=== PATIENT | female | born 1995 | race American Indian/Alaskan Native ===

== ENCOUNTER 2018-10-16 04:03 | Emergency (ER) | payer OTHER ==
[2018-10-16] MEDS ORDERED: TYLENOL PO ONE (04:56)
[2018-10-16] MEDS ORDERED: TYLENOL ONE (04:58)
[2018-10-16] MEDS ORDERED: DECADRON IM ONE (08:17)
--- NOTE | 2018-10-16 08:21 | Emergency Department Report ---
ED ENT HPI - General Chief complaint: Sore Throat Stated complaint: THROAT PAIN/EARACHE Time Seen by Provider: 10/16/18 07:52 Source: patient Mode of arrival: Ambulatory Limitations: No Limitations - History of Present Illness Initial comments: 23-year-old with no prior medical history complaining of sore throat for the past 2 weeks. Patient states that she's been trying [id number] medications are not helping. Patient said she social having referred right ear pain. Patient denies any trauma or recent injuries. Patient states that pain is worsened with swallowing foods and liquids. MD complaint: sore throat Onset/Timin -: Gradual Location: R ear, throat Severity: moderate Severity scale (0 -10): 7 Quality: aching Consistency: constant Improves with: none Worsens with: swallowing - Related Data Previous Rx's Medication Instructions Recorded Last Taken Type Amoxicillin [Amoxicillin TAB] 875 mg PO BID #14 tablet 10/16/18 Unknown Rx Ibuprofen [Motrin] 800 mg PO Q8HR #30 tablet 10/16/18 Unknown Rx Nystas/Diphen/Xyl Visc/Mylanta 15 ml MM Q6H PRN #120 ml 10/16/18 Unknown Rx [Magic Mouthwash] Allergies Allergy/AdvReac Type Severity Reaction Status Date / Time peanut Allergy Swelling Verified 10/16/18 04:46 ED Dental HPI - General Chief complaint: Sore Throat Stated complaint: THROAT PAIN/EARACHE Time Seen by Provider: 10/16/18 07:52 Source: patient Mode of arrival: Ambulatory Limitations: No Limitations - Related Data Previous Rx's Medication Instructions Recorded Last Taken Type Amoxicillin [Amoxicillin TAB] 875 mg PO BID #14 tablet 10/16/18 Unknown Rx Ibuprofen [Motrin] 800 mg PO Q8HR #30 tablet 10/16/18 Unknown Rx Nystas/Diphen/Xyl Visc/Mylanta 15 ml MM Q6H PRN #120 ml 10/16/18 Unknown Rx [Magic Mouthwash] Allergies Allergy/AdvReac Type Severity Reaction Status Date / Time peanut Allergy Swelling Verified 10/16/18 04:46 ED Review of Systems ROS: Stated complaint: THROAT PAIN/EARACHE Other details as noted in HPI Constitutional: denies: chills, fever Eyes: denies: eye pain, eye discharge, vision change ENT: ear pain, throat pain. denies: congestion Respiratory: denies: cough, shortness of breath, wheezing Cardiovascular: denies: chest pain, palpitations Endocrine: no symptoms reported Gastrointestinal: denies: abdominal pain, nausea, diarrhea Skin: denies: rash ED Past Medical Hx - Past Medical History Previous Medical History?: No - Surgical History Past Surgical History?: No - Social History Smoking Status: Never Smoker Substance Use Type: None - Medications Home Medications: Home Medications Medication Instructions Recorded Confirmed Last Taken Type Amoxicillin [Amoxicillin TAB] 875 mg PO BID #14 tablet 10/16/18 Unknown Rx Ibuprofen [Motrin] 800 mg PO Q8HR #30 tablet 10/16/18 Unknown Rx Nystas/Diphen/Xyl Visc/Mylanta 15 ml MM Q6H PRN #120 ml 10/16/18 Unknown Rx [Magic Mouthwash] ED Physical Exam - General Limitations: No Limitations General appearance: alert, in no apparent distress - Head Head exam: Present: atraumatic, normocephalic - Eye Eye exam: Present: normal appearance - ENT ENT exam: Present: mucous membranes moist, TM's normal bilaterally - Expanded ENT Exam Expanded Mouth exam: Present: normal external inspection Teeth exam: Present: normal inspection Throat exam: Positive: tonsillomegaly, tonsillar exudate, R peritonsillar mass, L peritonsillar mass - Neck Neck exam: Present: normal inspection, tenderness (anterior cervical), full ROM, lymphadenopathy - Respiratory Respiratory exam: Present: normal lung sounds bilaterally. Absent: respiratory distress, wheezes, rales - Cardiovascular Cardiovascular Exam: Present: regular rate, normal rhythm. Absent: systolic murmur, diastolic murmur, rubs, gallop - GI/Abdominal GI/Abdominal exam: Present: soft, normal bowel sounds - Extremities Exam Extremities exam: Present: normal inspection - Back Exam Back exam: Present: normal inspection - Neurological Exam Neurological exam: Present: alert, oriented X3 - Psychiatric Psychiatric exam: Present: normal affect, normal mood - Skin Skin exam: Present: warm, dry, intact, normal color. Absent: rash ED Course Vital Signs 10/16/18 10/16/18 10/16/18 04:17 04:47 04:57 Temperature 98 F 98 F Pulse Rate 96 H 96 H Respiratory 20 20 20 Rate Blood Pressure 116/74 Blood Pressure 116/74 [Right] O2 Sat by Pulse 99 99 Oximetry ED Medical Decision Making - Medical Decision Making 23-year-old female presents with pharyngitis ED course: Rapid strep tests ordered rapid strep test negative Patient received 1 dose of Tylenol, , 10 mg of Decadron administered ED. Due to patient's clinical symptoms will treat for strep throat Vital signs stable patient is in no acute or respiratory distress. Discussed findings with patient about the positive strep. Discussed treatment in ED with patient Discussed the patient that strep throat is contagious and to limit sharing spoons and such. Patient to be sent home on antibiotic therapy Motrin and Magic mouthwash Discussed with patient follow-up with primary care physician. Patient verbally states he understands and will comply to follow-up. Critical care attestation.: If time is entered above; I have spent that time in minutes in the direct care of this critically ill patient, excluding procedure time. ED Disposition Clinical Impression: Pharyngitis Disposition: DC-01 TO HOME OR SELFCARE Is pt being admited?: No Does the pt Need Aspirin: No Condition: Stable Instructions: Strep Throat (ED), Pharyngitis (ED) Additional Instructions: Make sure to follow up with the primary care physician as discussed. Take all your medications as you've been prescribed. If you have any worsening symptoms or develop new symptoms please return to ED immediately. Prescriptions: Amoxicillin [Amoxicillin TAB] 875 mg PO BID #14 tablet Ibuprofen [Motrin] 800 mg PO Q8HR #30 tablet Nystas/Diphen/Xyl Visc/Mylanta [Magic Mouthwash] 15 ml MM Q6H PRN #120 ml PRN Reason: Sore Throat Referrals: PRIMARY CARE, [Primary Care Provider] - 3-5 Days [facility] [Outside] - 3-5 Days [facility] [Outside] - 3-5 Days [facility] [Outside] - 3-5 Days Forms: Work/School Release Form(ED) Time of Disposition: 08:23
[2018-10-16 08:40] VITALS: BP 117/71
== END 2018-10-16 08:39 | disposition home or self-care (01) ==
LOC: ED 04:03
DX: J02.9 Acute pharyngitis, unspecified (principal); Z91.010 Allergy to peanuts
CPT/HCPCS: 87116; 87430; 96372; 99283; J1100

== ENCOUNTER 2019-07-06 11:57 | Emergency (ER) | payer SELFPAY ==
--- NOTE | 2019-07-06 12:17 | Event Note ---
ED Screening Note Date of service: 07/06/19 Time: 12:14 ED Screening Note: This is a 24 y.o. F. that presents to the ER with vaginal pruritus and pelvic pain for 2 days. This initial assessment/diagnostic orders/clinical plan/treatment(s) is/are subject to change based on patients health status, clinical progression and re- assessment by fellow clinical providers in the ED. Further treatment and workup at subsequent clinical providers discretion. Patient/guardian urged not to elope from the ED as their condition may be serious if not clinically assessed and managed. Initial orders include: UA, hCG, wet prep, and GC Pelvic exam
[2019-07-06 13:26] LABS: Bilirubin,Urine NEG (Negative); Blood,Urine NEG (Negative); Color,Urine Yellow (Yellow); Mucus,Urine FEW /HPF; Protein,Urine <15 mg/dL mg/dL (Negative); Urobilinogen,Urine < 2.0 mg/dL (<2.0)
[2019-07-06 13:30] LABS: HCG Qualitative,Urine Negative (Negative)
--- NOTE | 2019-07-06 15:21 | Emergency Department Report ---
ED Dysuria HPI - HPI Chief Complaint: Urogenital-Female Stated Complaint: DISCOMFORT IN VAGINAL AREA/PAIN Time Seen by Provider: 07/06/19 12:14 Duration: 3 Days Location of Discomfort: Suprapubic Severity: Mild Symptoms: Dysuria: No, Frequency: No, Suprapubic Pain: No, Flank Pain: No, Fever: No, Hematuria: No, Abdominal Pain: Yes, Previous UTI's: No Other History: 24 YO FEMALE HERE W BOYFRIEND. SHE IS CO "IRRITATION OF VAGINA" AFTER HAVING ANAL SEX. HE IS CO OF "DISCOMFORT." SHE DENIES VAG DC OR PAIN. DENIES ABD PAIN. NO FEVER OR CHILLS. NO DYSURIA. NO LESIONS. LMP 2 W AGO. THIS IS HER ONLY SEXUAL PARTNER ED Review of Systems ROS: Stated complaint: DISCOMFORT IN VAGINAL AREA/PAIN Other details as noted in HPI Comment: All other systems reviewed and negative ED Past Medical Hx - Past Medical History Previous Medical History?: No - Surgical History Past Surgical History?: No - Social History Smoking Status: Never Smoker Substance Use Type: None Dysuria Exam - Exam General: Vital signs noted. No distress. Alert and acting appropriately. Exam: Yes Moist Mucous Membranes, No CVA Tenderness, No Abdominal Tenderness, No Rigidity or Guarding Exam: NO ADNEXA TENEDNESS. MINIMAL DISCHARGE ON CERVIX. NO LESIONS ON EXAM. NO CVA TENDERNESS. ABD SNT Labs: Lab Results 07/06/19 Range/Units Unknown Urine Color Yellow (Yellow) Urine Turbidity Clear (Clear) Urine pH 8.0 H (5.0-7.0) Ur Specific [place] 1.015 (1.003-1.030) Urine Protein <15 mg/dl (Negative) mg/dL Urine Glucose (UA) Neg (Negative) mg/dL Urine Ketones Neg (Negative) mg/dL Urine Blood Neg (Negative) Urine Nitrite Neg (Negative) Urine Bilirubin Neg (Negative) Urine Urobilinogen < 2.0 (<2.0) mg/dL Ur Leukocyte Esterase Neg (Negative) Urine WBC (Auto) 2.0 (0.0-6.0) /HPF Urine RBC (Auto) 3.0 (0.0-6.0) /HPF U Epithel Cells (Auto) 5.0 (0-13.0) /HPF Urine Mucus Few /HPF Urine HCG, Qual Negative (Negative) ED Course Vital Signs 07/06/19 12:13 Temperature 98.4 F Pulse Rate 78 Respiratory 18 Rate Blood Pressure 129/71 [Left] O2 Sat by Pulse 98 Oximetry ED Medical Decision Making - Medical Decision Making Vital Signs 07/06/19 12:13 Temperature 98.4 F Pulse Rate 78 Respiratory 18 Rate Blood Pressure 129/71 [Left] O2 Sat by Pulse 98 Oximetry Labs 07/06/19 Unknown Urine Color Yellow Urine Turbidity Clear Urine pH 8.0 H Ur Specific [place] 1.015 Urine Protein <15 mg/dl Urine Glucose (UA) Neg Urine Ketones Neg Urine Blood Neg Urine Nitrite Neg Urine Bilirubin Neg Urine Urobilinogen < 2.0 Ur Leukocyte Esterase Neg Urine WBC (Auto) 2.0 Urine RBC (Auto) 3.0 U Epithel Cells (Auto) 5.0 Urine Mucus Few Urine HCG, Qual Negative CALL PT IF GC IS POSITIVE SHE DEFERRED EMPIRIC TREATMENT UA NOTED PREG NEG DC HOME WITH DC PLAN OF CARE. EDUCATED ON SAFE SEX - Differential Diagnosis UTI/PREG NEG/STI Critical care attestation.: If time is entered above; I have spent that time in minutes in the direct care of this critically ill patient, excluding procedure time. ED Disposition Clinical Impression: Vaginitis Disposition: DC-01 TO HOME OR SELFCARE Is pt being admited?: No Does the pt Need Aspirin: No Condition: Stable Additional Instructions: NO UTI NO TRICH/NO YEAST/ NO BV WE WILL CALL YOU WHEN GC COMES BACK FOLLOW UP OBGYN REFERRAL BELOW Referrals: MANAS SUERO MD [Staff Physician] - 3-5 Days Time of Disposition: 16:23
[2019-07-06 16:45] VITALS: BP 147/95
== END 2019-07-06 16:45 | disposition home or self-care (01) ==
LOC: ED 11:57
DX: N76.0 Acute vaginitis (principal)
CPT/HCPCS: 81001; 81025; 87210; 87591; 99284

== ENCOUNTER 2019-11-12 12:01 | Emergency (ER) | payer OTHER ==
[2019-11-12 12:13] VITALS: BP 145/75
--- NOTE | 2019-11-12 12:33 | Event Note ---
ED Screening Note Date of service: 11/12/19 Time: 12:30 ED Screening Note: This is a 24 y.o. F. that presents to the ER with sore throat and vaginal pain for 3 days. States a foul vaginal odor without discharge. This initial assessment/diagnostic orders/clinical plan/treatment(s) is/are subject to change based on patients health status, clinical progression and re- assessment by fellow clinical providers in the ED. Further treatment and workup at subsequent clinical providers discretion. Patient/guardian urged not to elope from the ED as their condition may be serious if not clinically assessed and managed. Initial orders include: UA Urine hCG Pelvic exam
--- NOTE | 2019-11-12 13:43 | Emergency Department Report ---
Chief Complaint: Urogenital-Female Stated Complaint: PAIN IN GROIN Time Seen by Provider: 11/12/19 12:30 - HPI History of Present Illness: This is a 24-year-old female presents to ED complaining of foul odors vaginal odor for the past 3 days. She stated that she has similar symptoms June and was evaluated with normal findings. Patient denies irregular vaginal bleeding, pelvic pain, dysuria, fever, chills, nausea vomiting or any other symptoms. - ROS Review of Systems: As noted in HPI - Exam Vital Signs: Vital Signs 11/12/19 12:10 Temperature 98.6 F Pulse Rate 80 Respiratory 16 Rate Blood Pressure 145/75 O2 Sat by Pulse 98 Oximetry Physical Exam: Nontender abdomen., Alert and oriented 3 in no acute distress. MSE screening note: Focused history and physical exam performed. Due to findings the following was ordered: ED Medical Decision Making - Medical Decision Making 24-year-old female who presents for a nonmedical emergency. As discussed with the patient that she must be evaluated by primary care doctor. Referrals given to see Dr. Rubi in [facility] as well as [facility]. I encouraged patient to follow-up with either one of these primary care today for the next 2 days. Vital signs are normal patient is in no acute distress ED Disposition for MSE Clinical Impression: Vaginitis Disposition: Z-07 MED SCREENING EXAM-LEFT Is pt being admited?: No Does the pt Need Aspirin: No Condition: Stable Instructions: Vaginitis (ED) Additional Instructions: Make sure to follow up with the primary care physician as discussed. If you have any worsening symptoms or develop new symptoms please return to ED immediately. Referrals: DAVIDE MORALEZ MD [Staff Physician] - 3-5 Days [facility] [Outside] - 3-5 Days Forms: Work/School Release Form(ED) Time of Disposition: 13:42
== END 2019-11-12 14:00 | disposition left against medical advice (07) ==
LOC: ED 12:01
DX: N76.0 Acute vaginitis (principal)
CPT/HCPCS: 87116; 87430; 99282